=== PATIENT | male | born 1985 | race Caucasian/White ===

== ENCOUNTER 2017-08-22 20:12 | Emergency (ER) | payer OTHER ==
--- NOTE | 2017-08-22 20:15 | EDPHY ---
H & P Time Seen by Provider: 08/22/17 20:16 Constitutional: Initial Vital Signs Temperature (C) 36.7 C 08/22/17 20:18 Heart Rate 81 08/22/17 20:18 Respiratory Rate 16 08/22/17 20:18 Blood Pressure 156/85 H 08/22/17 20:18 O2 Sat (%) 93 08/22/17 20:18 O2 Delivery Mode Room Air Allergies/Adverse Reactions: Sulfa (Sulfonamide Antibiotics) Allergy (Verified 08/22/17 20:17) Home Medications: Medication Instructions Recorded NK [No Known Home Meds] 08/22/17 Medical Decision Making ED Course/Re-evaluation: CHIEF COMPLAINT: Polypharmacy use HISTORY OF PRESENT ILLNESS: The patient is a 32 y/o male arriving via EMS with [facility] for polypharmacy use and medical clearance. The patient states he took meth, Suboxone, heroin, cocaine, and marijuana. After taking these drugs, he drove to the fire station and stated that he took "a bunch of drugs". He denies recent injury. He states "I need OxyContin". He also states the "angels drive me everywhere I go, the angels of light drive me" and that he is here to "spread the word and you have to be Lucifer to understand both sides". Denies chest pain , shortness of breath, abdominal pain, urinary or bowel complaints, fever, numbness, paresthesias. REVIEW OF SYSTEMS: A 10 point review of systems was performed and is negative with the exception of the elements mentioned in the history of present illness. PHYSICAL EXAM: HR, BP, O2 Sat, RR. Temp noted General Appearance: Alert, well hydrated, appropriate, and non-toxic appearing. Head: Atraumatic without scalp tenderness or obvious injury Eyes: Pupils equal, round, reactive to light and accommodation, EOMI, no trauma , no injection. Ears: Clear bilaterally, no perforation, normal landmarks Nose: Atraumatic, no rhinorrhea, clear. Throat: There is no erythema or exudates, no lesions, normal tonsils, mucus membranes dry. Neck: Supple, nontender, no lymphadenopathy. Respiratory: No retractions, no distress, no wheezes, and no accessory muscle use. Lungs are clear to auscultation bilaterally. Cardiovascular: Regular rate and rhythm, no murmurs, rubs, or gallops. Good capillary refill all extremities. Gastrointestinal: Abdomen is soft, nontender, non-distended, no masses, no rebound, no guarding, no peritoneal signs. Musculoskeletal: Normal active ROM of all extremities, atraumatic. Neurological: Alert, appropriate, and interactive. Nonfocal neuro. Skin: No rashes, good turgor, no nodules on palpation. Psych: Oriental Orthodox perseverations. Past medical history: Substance abuse Past surgical history: Denies Family history: Denies Social history: Originally from [place], single, not employed DIFFERENTIAL DIAGNOSIS: The differential diagnosis for the patient's latter-day perseverations included but was not limited to functional and major depression, situational depression, medication side effect, drugs, and alcohol abuse. MEDICAL DECISION MAKING: The patient is a 32 y/o male arriving via EMS with [facility] for polypharmacy use. He is currently having latter-day perseverations. Patient will need to be placed on a detainer. Labs ordered. 2022: I placed this patient on a detainer as he is incapable for making medical decisions. 2043: Patient's hematocrit is 54.7. 2044: Reassessed patient and encouraged him to increase his fluid intake as he is mildly dehydrated. 2134: Patient's nurse reports that the patient has had numerous psych evaluations and numerous ER visits in the past month. His mother believes the symptoms tonight are solely due to drugs. Patient is safe to be discharged to [facility]. - Data Points Laboratory Results: Laboratory Results 08/22/17 20:20 08/22/17 20:20 08/22/17 08/22/17 20:20 20:20 WBC 12.15 10^3/uL H 10^3/uL (3.80-9.50) RBC 6.25 10^6/uL 10^6/uL (4.40-6.38) Hgb 19.1 g/dL H g/dL (13.7-17.5) Hct 54.7 % H % (40.0-51.0) MCV 87.5 fL fL (81.5-99.8) MCH 30.6 pg pg (27.9-34.1) MCHC 34.9 g/dL g/dL (32.4-36.7) RDW 12.1 % % (11.5-15.2) Plt Count 347 10^3/uL 10^3/uL (150-400) MPV 9.2 fL fL (8.7-11.7) Neut % (Auto) 84.9 % H % (39.3-74.2) Lymph % (Auto) 10.1 % L % (15.0-45.0) [place] % (Auto) 4.3 % L % (4.5-13.0) Eos % (Auto) 0.2 % L % (0.6-7.6) Baso % (Auto) 0.3 % % (0.3-1.7) Nucleat RBC Rel Count 0.0 % % (0.0-0.2) Absolute Neuts (auto) 10.30 10^3/uL H 10^3/uL (1.70-6.50) Absolute Lymphs (auto) 1.23 10^3/uL 10^3/uL (1.00-3.00) Absolute Monos (auto) 0.52 10^3/uL 10^3/uL (0.30-0.80) Absolute Eos (auto) 0.03 10^3/uL 10^3/uL (0.03-0.40) Absolute Basos (auto) 0.04 10^3/uL 10^3/uL (0.02-0.10) Absolute Nucleated RBC 0.00 10^3/uL 10^3/uL (0-0.01) Immature Gran % 0.2 % % (0.0-1.1) Immature Gran # 0.03 10^3/uL 10^3/uL (0.00-0.10) Sodium 146 mEq/L H mEq/L (135-145) Potassium 4.3 mEq/L mEq/L (3.3-5.0) Chloride 101 mEq/L mEq/L (97-110) Carbon Dioxide 22 mEq/l mEq/l (22-31) Anion Gap 23 mEq/L H mEq/L (8-16) BUN 15 mg/dL mg/dL (7-23) Creatinine 1.2 mg/dL mg/dL (0.7-1.3) Estimated GFR > 60 Glucose 94 mg/dL mg/dL (70-100) Calcium 11.9 mg/dL H mg/dL (8.5-10.4) Phosphorus 3.8 mg/dL mg/dL (2.5-4.5) Salicylates < 1.0 mg/dL L mg/dL (2.0-20.0) Acetaminophen < 10 mcg/mL L mcg/mL (10-30) Ethyl Alcohol < 10 mg/dL mg/dL (0-10) Departure - Departure Disposition: Law Enforcement/Court/Nursing Home Clinical Impression: Polysubstance abuse Condition: Good Instructions: Polysubstance Abuse (ED) Additional Instructions: 1. Please refrain from abusing drugs. 2. Follow-up with your primary doctor within 72 hours. 3. Return to the Emergency Department for fever, chest pain, shortness of breath , increasing pain or other worsening of condition. Referrals: [facility],. [Clinic] - As per Instructions Report Scribed for: Antonio Cloud Report Scribed by: Eviat Chauhan Date of Report: 08/22/17 Time of Report: 20:15
[2017-08-22 20:34] LABS: PLATELET COUNT 347 10^3/uL (150-400)
[2017-08-22 23:03] VITALS: BP 140/67
== END 2017-08-22 22:58 ==
DX: F19.10 Other psychoactive substance abuse, uncomplicated (principal)
CPT/HCPCS: G0480

== ENCOUNTER 2017-08-27 21:36 | Emergency (ER) | payer SELFPAY ==
[2017-08-27 21:43] VITALS: BP 144/94
--- NOTE | 2017-08-27 22:04 | EDPHY ---
H & P Stated Complaint: med cleared for long-term, tazzed to l shoulder Time Seen by Provider: 08/27/17 21:50 HPI/ROS: Chief Complaint: Substance abuse, med clearance, Taser injury HPI: 32-year-old male brought in by police for medical clearance. Patient was pulled over the traffic stop. He appears intoxicated and was not cooperative. Patient became aggressive and was [place] by the police. He was struck in the left anterior and posterior shoulder with the Taser darts. Patient is rambling about his sikhism admission and the hernandez he has to fight between good and evil. He does admit to using heroin yesterday. Did use Adderall and meth yesterday as well. He states today he use marijuana and other substances which she will not specify. Denies any pain. Of note I reviewed the patient's record in he was seen at [facility] on the of this month, at since [facility] on the of this month, here on the 20 sec of this month. Each of those times the patient came in apparently psychotic and gravely disabled. He was positive for methamphetamine and during the course of those hospitalizations his delirium cleared when the substances cleared. He had mental health evaluations 2 of those admissions and his mental status changes were associated with his polysubstance abuse. ROS: 10 point Review of Systems is negative except as noted in the HPI. PMH: Polysubstance abuse Social History: No smoking, no alcohol, polysubstance abuse Family History: non-contributory Physical Exam: Gen: Awake, Alert, No Distress HEENT: Nose: no rhinorrhea Eyes: PERRLA, EOMI Mouth: Moist mucosa Neck: Supple, no JVD Chest: nontender, lungs clear to auscultation, patient has puncture wound below his left clavicle and over his left scapula. No erythema or discharge. Heart: S1, S2 normal, no murmur Abd: Soft, non-tender, no guarding Back: no CVA tenderness, no midline tenderness Ext: no edema, non-tender Skin: no rash Neuro: CN II-XII intact, Sensation grossly intact, Strength 5/5 in bilateral upper and lower extremities - Personal History Current Tetanus/Diphtheria Vaccine: Yes Current Tetanus Diphtheria and Acellular Pertussis (TDAP): Yes - Medical/Surgical History Hx Asthma: No Hx Chronic Respiratory Disease: No Hx Diabetes: No Hx Cardiac Disease: No Hx Renal Disease: No Hx Cirrhosis: No Hx Alcoholism: No Hx HIV/AIDS: No Hx Splenectomy or Spleen Trauma: No Other PMH: substance abuse - Social History Smoking Status: Current every day smoker Constitutional: Initial Vital Signs Temperature (C) 36.7 C 08/27/17 21:37 Heart Rate 118 H 08/27/17 21:37 Respiratory Rate 18 08/27/17 21:37 Blood Pressure 144/94 H 08/27/17 21:37 O2 Sat (%) 95 08/27/17 21:37 O2 Delivery Mode Room Air Allergies/Adverse Reactions: Sulfa (Sulfonamide Antibiotics) Allergy (Verified 08/27/17 21:42) Home Medications: Medication Instructions Recorded NK [No Known Home Meds] 08/22/17 Medical Decision Making ED Course/Re-evaluation: 32-year-old male presenting appearing acutely psychotic with polysubstance abuse. I have reviewed his medical records and he has had 5 visits in the last 13 days for similar presentations. In each of does his delirium cleared with metabolize a perez of his substances that he ingested. Each of these his mental status change in his were attributed to his substance abuse. He is presenting in the exact same way. Is not carry a diagnosis of psychiatric illness. He does admit to substance use yesterday and today. For this reason I do not feel he is acutely psychotic but is simply under the influence of substances. He has no acute traumatic injury. He is otherwise medically cleared for long-term. Certainly if his mental status does not clear in the next 12 hr he is welcome to come back for a formal mental health evaluation however I do not believe that this will be the case. Departure - Departure Disposition: Law Enforcement/Court/[facility] Clinical Impression: Polysubstance abuse, Taser injury Condition: Good Instructions: Puncture Wound (ED), Polysubstance Abuse (ED) Additional Instructions: Please seek help to discontinue using drugs. MEDICALLY CLEAR FOR RETIREMENT Referrals: NONE *PRIMARY CARE P,. [Primary Care Provider] - As per Instructions
== END 2017-08-27 22:10 ==
LOC: EDUNIT#
DX: F19.10 Other psychoactive substance abuse, uncomplicated (principal); T75.4XXA Electrocution, initial encounter; F17.200 Nicotine dependence, unspecified, uncomplicated